=== PATIENT | female | born 1985 | race Caucasian/White ===

== ENCOUNTER → 2022-07-30 | Outpatient (CLI) | payer BC ==
--- NOTE | 2022-07-30 09:11 | CT ---
EXAMINATION TYPE: CT abdomen pelvis w con DATE OF EXAM: 07/30/2022 HISTORY: LLQ pain rule out diverticulitis. CT DLP: 1245mGycm Automated Exposure Control for Dose Reduction was Utilized. CONTRAST: CT scan of the abdomen and pelvis is performed with IV Contrast, patient injected with 100 mL of Isov ue 300. COMPARISON: None. FINDINGS: LUNG BASES: No significant abnormality is appreciated. LIVER/GB: No significant abnormality is appreciated. PANCREAS: No significant abnormality is seen. SPLEEN: Prominent spleen/mild splenomegaly of 13.4 cm long axis axial image 27. ADRENALS: No significant abnormality is seen. KIDNEYS: No significant abnormality is seen. BOWEL: Oral contrast only reaches jejunal loops in the left abdomen making evaluation of all slightly suboptimal.. No suspicious small or large bowel dilatation. Diverticula begin in the transverse colo n extending through the left and sigmoid colon. There is moderate ill-defined fluid and fat stranding in the left mid to lower abdomen consistent with acute diverticulitis. No free air. No well-formed f luid collection or abscess is seen. UTERUS/ADNEXA: Anteverted uterus. There is 2.7 cm oval low dense lesion right ovary presumed simple t hin-walled cyst but can be further characterized with pelvic ultrasound is desired. LYMPH NODES: No greater than 1cm abdominal or pelvic lymph nodes are appreciated. OSSEOUS STRUCTURES: No significant abnormality is seen. OTHER: No significant additional abnormality is seen. IMPRESSION: CT findings consistent with a moderate but uncomplicated acute diverticulitis involving t he mid to distal sigmoid colon in the left lower quadrant. A Yellow level critical message alert has been initiated for Angelina Sahu DO via the [employer] Critical Results System on 07/30/2022 9:09 AM. This message alert has been sent to Angelina mallory DO via the preferences provided by the clinician for the receipt of Radiology Critical Findings. Message ID [id number].
== END | disposition home or self-care (01) ==
LOC: RADCTMAIN 07:12
PROVIDERS: ATTEND Family Medicine
DX: K57.32 Diverticulitis of large intestine without perforation or abscess without bleeding (principal)
CPT/HCPCS: 74177; Q9967